=== PATIENT | female | born 1945 | race Caucasian/White ===

== ENCOUNTER → 2018-11-13 | Day surgery (SDC) | payer MEDICARE ==
[2018-11-12 11:17] LABS: BASOPHILS % 0.7 % (0.0-1.0); EOSINOPHILS # (AUTO) 0.2 (0.0-0.4); EOSINOPHILS % 3.7 % (0.0-6.0); HEMATOCRIT 41.4 % (34.2-44.1); HEMOGLOBIN 13.4 g/dL (12.0-16.0); LYMPHOCYTES # (AUTO) 1.8 (1.0-3.2); MEAN CORPUSCULAR HGB CONC 32.4 g/dL (31-35); MEAN CORPUSCULAR VOLUME 92.8 fL (81-99); MONOCYTES # (AUTO) 0.6 (0.2-0.8); MONOCYTES % 10.4 % (4.4-11.3); NEUTROPHILS # (AUTO) 2.8 (2.1-6.9); PLATELET COUNT 231 x10e3/uL (140-360); RED BLOOD COUNT 4.46 x10e6/uL (3.6-5.1); RED CELL DISTRIBUTION WIDTH 12.7 % (11.7-14.4)
--- NOTE | 2018-11-12 12:31 | Diagnostic Imaging Report ---
EXAMINATION: CHEST 2 VIEWS INDICATION: Pre-admit. COMPARISON: None FINDINGS: TUBES and LINES: None. LUNGS: Lungs are well inflated. Lungs are clear. There is no evidence of pneumonia or pulmonary edema. PLEURA: No pleural effusion or pneumothorax. HEART AND MEDIASTINUM: The cardiomediastinal silhouette is unremarkable. BONES AND SOFT TISSUES: No acute osseous lesion. Soft tissues are unremarkable. UPPER ABDOMEN: No free air under the diaphragm. IMPRESSION: No acute radiographic abnormality. Signed by: Dr. Xavier Bacon MD on 11/12/2018 12:28 PM
[~2018-11-13] MED LIST: BUPIVACAINE 0.5%/EPI 30 ML SDV INJ ONE; CLINDAMYCIN 300MG 50 ML IV ONE; DEXAMETHASONE SOD PHOS INJ 4 MG/ML VIAL ONE; FENTANYL CITRATE/PF 100MCG/2 ML INJ ONE; FLONASE; GENTAMICIN 80MG/NS 100 ML 200 ML IV ONE; LIDOCAINE 2%/ EPINEPHRINE 20ML MDV ONE; LIDOCAINE HCL 2% LOCAL INJ 5 ML SDV VIAL INJ ONE; LISINOPRIL10 MG PO; ONDANSETRON HCL INJ 2MG/ML 2ML 2 MG/ML VIAL ONE; PIPER-TAZ 3.375 GM 50 ML ONE; PROPOFOL IV EMULSION 10 MG/ML 20 ML VIAL ONE; ROCURONIUM BROMIDE 10 MG/ML 5ML VIAL ONE; SEVOFLURANE INHAL SOLN 250 ML PEN BTL ONE; SINGULAIR10 MG PO; ZYRTEC10 M3 PO
--- OUTSIDE RECORDS SUMMARY | 2018-11-13 09:17 | XMS REPORT ---
Author Author [facility] Address Unknown Phone Unavailable Care Team Providers Care Furniture Sander Name Role Phone ALAINA CHAMPION Unavailable Unavailable Problems This patient has no known problems. Allergies, Adverse Reactions, Alerts This patient has no known allergies or adverse reactions. Medications This patient has no known medications. Results Test Description Test Time Test Comments Text Results Atomic Results Result Comments CHEST 2 VIEWS 2018-11-12 12:27:00 [place] [id number] Patient Name: DELIA LANDEROS MR #: [id number] : 1945 Age/Sex: 73/F Req #: [id number] Adm Physician: Ordered by: ALAINA CHAMPION MD Report #: [id number] Location: OR Room/Bed: Procedure: [id number] DX/CHEST 2 VIEWS Exam Date: 11/12/18 Exam Time: 1130 REPORT STATUS: Signed EXAMINATION: CHEST 2 VIEWS INDICATION: Pre-admit. COMPARISON: None FINDINGS: TUBES and LINES: None. LUNGS: Lungs are well inflated. Lungs are clear. There is no evidence of pneumonia or pulmonary edema. PLEURA: No pleural effusion or pneumothorax. HEART AND MEDIASTINUM: The cardiomediastinal silhouette is unremarkable. BONES AND SOFT TISSUES: No acute osseous lesion. Soft tissues are unremarkable. UPPER ABDOMEN: No free air under the diaphragm. IMPRESSION: No acute radiographic abnormality. Signed by: Dr. Rodolfo Costa MD on 11/12/2018 12:28 PM Dictated By: RODOLFO COSTA MD [id number] Transcribed By: SOTO on 11/12/18 1228 COPY TO: ALAINA CHAMPION MD
[2018-11-13 15:00] VITALS: BP 126/60
--- NOTE | 2018-11-15 20:06 | Operative Report ---
DATE OF PROCEDURE: November 13, 2018 PREOPERATIVE DIAGNOSIS: Refractory urge incontinence. POSTOPERATIVE DIAGNOSIS: Refractory urge incontinence. OPERATIONS PERFORMED 1. Explantation of left-sided InterStim neurostimulator. 2. Explantation of left-sided InterStim lead. 3. Complete InterStim system implantation on the right hand side with incision implantation of tined quadripolar lead electrodes into the right foramen S3. 4. Fluoroscopic guidance for needle placement. 5. Subcutaneous implantation of sacral nerve neurostimulator on the right hand side. 6. Electronic analysis and complex programming. ANESTHESIA: General. COMPLICATIONS: None. CLINICAL SUMMARY: Raiza Singer is a 73-year-old woman who in 2014 had an InterStim implantation performed by urogynecologist. This seemed to work for several weeks and then stopped working. The patient is brought to the operating room today for replacement of her nonfunctional InterStim. She is aware of the risks of bleeding, infection, injury to adjacent structures, need for additional procedures, and elected to proceed. OPERATIVE PROCEDURE IN DETAIL: Informed consent was verified. Raiza Singer was properly identified, taken to the operating room where general anesthesia was uneventfully begun. She was carefully repositioned into prone position with all pressure points very carefully well padded. Her back and buttocks were prepared and draped in usual sterile fashion. An incision was made through the old scar of the InterStim neurostimulator. This stimulator was placed extremely medial on the back, so that when the patient is lying on her back, she is lying right on the top of her neurostimulator. We incised the stimulator and it seemed intact. We then unscrewed the single set screw and removed the neurostimulator. We then tested the 4 leads for plantarflexion of the great toe as well as bellowing of the perineum. Fluoroscopically, this lead appeared to be positioned higher than it should be. It seemed to have also been migrated proximally. This lead was obviously not in good position. We then made an incision over the old existing lead site, gently pulled on the lead. Despite pulling extremely gently, the lead disconnected leaving the contacts within the patient even though the lead was removed. A needle was introduced into the right foramen S3. We verified depth of needle and position of the needle fluoroscopically. We observed and identified bellowing as well as plantarflexion of the great toe. Then, the needle stylet was removed and directional guidewire was then placed and decision was made peripheral to the directional guide. The dilator introducer sheath was then placed over the directional guidewire and was placed into the foramen until the opaque marker of the dilator was seen midway through the sacrum. The dilator and obturator were unlocked. The lead was then placed and introduced the sheath through the first white line. Position was checked fluoroscopically. The lead was then further advanced until the leads were anterior to the sacrum. All electrodes were tested and appeared to respond appropriately as mentioned above. We then, under continuous fluoroscopy, retracted the sheath and thus deploying the lead tines into the parasacral tissue. Further incision was then made into the subcutaneous tissues posterior to iliac crest on the right hand side and we created a pocket. We then utilized the tunneling tool to bring the lead from its current position to the pocket site. We verified hemostasis. The lead was then cleansed of bodily fluids with thorough irrigation with sterile water. It was dried thoroughly. The lead was then placed into the [facility] pulse generator header with the leads aligned and the blue tip clearly visible in the distal most portion of the pulse generator header. The single set screw was tightened with a Hex wrench. We irrigated all wounds thoroughly. We then placed a pulse generator into the subcutaneous pocket and interrogated it with a programming head on all parameters within acceptable limits. We then approximated all incisions in 2 layers utilizing absorbable suture. We thoroughly irrigated at each layer of the closure. Mastisol, Steri-Strips and Bioclusive dressings were applied. Prior to closure, Marcaine and lidocaine with epinephrine were infiltrated circumferentially to all the incisions for postoperative pain control. The patient was uneventfully reversed from anesthesia and taken to recovery room in stable condition. There were no complications during the procedure. She tolerated it well. Utilizing a clinician programming, the patient was then programmed to lead of optimum sensation and given explicit instructions on utilizing the android programmer prior to discharge. There were no complications during the procedure. The patient tolerated the procedure well. Sponge, needle and instrument counts were quoted correct x2 at the end of the case. Estimated blood loss was minimal. Explicit postoperative instructions were given. We will follow the patient up in the office. Job#: [id number] MORRO
== END | disposition home or self-care (01) ==
LOC: OR 09:14
PROVIDERS: ATTEND Urology
DX: N39.46 Mixed incontinence (principal); I10 Essential (primary) hypertension; Z88.6 Allergy status to analgesic agent; Z01.810 Encounter for preprocedural cardiovascular examination; Z01.812 Encounter for preprocedural laboratory examination; Z01.818 Encounter for other preprocedural examination; Z68.30 Body mass index [BMI] 30.0-30.9, adult
CPT/HCPCS: 64581; 64590; 95972; C1778; L8679; 36415; 71046; 85025; 88300; 93005; J1100; J1580; J2001; J2405; J2543

== ENCOUNTER 2018-11-15 13:52 | Inpatient (IN) | payer MEDICARE ==
[~2018-11-15] VITALS: Ht 165.1 cm; Wt 90.3 kg
[~2018-11-15 13:52] MED LIST changes: -BUPIVACAINE 0.5%/EPI 30 ML SDV INJ ONE; -CLINDAMYCIN 300MG 50 ML IV ONE; -DEXAMETHASONE SOD PHOS INJ 4 MG/ML VIAL ONE; -FENTANYL CITRATE/PF 100MCG/2 ML INJ ONE; -GENTAMICIN 80MG/NS 100 ML 200 ML IV ONE; -LIDOCAINE 2%/ EPINEPHRINE 20ML MDV ONE; -LIDOCAINE HCL 2% LOCAL INJ 5 ML SDV VIAL INJ ONE; -ONDANSETRON HCL INJ 2MG/ML 2ML 2 MG/ML VIAL ONE; -PIPER-TAZ 3.375 GM 50 ML ONE; -PROPOFOL IV EMULSION 10 MG/ML 20 ML VIAL ONE; -ROCURONIUM BROMIDE 10 MG/ML 5ML VIAL ONE; -SEVOFLURANE INHAL SOLN 250 ML PEN BTL ONE
[2018-11-15 15:07] LABS: BASOPHILS % 0.6 % (0.0-1.0); EOSINOPHILS # (AUTO) 0.2 (0.0-0.4); EOSINOPHILS % 3.8 % (0.0-6.0); HEMOGLOBIN 13.8 g/dL (12.0-16.0); LYMPHOCYTES # (AUTO) 1.6 (1.0-3.2); LYMPHOCYTES % 25.7 % (18.0-39.1); MEAN CORPUSCULAR HEMOGLOBIN 31.4 pg (28-32); MEAN CORPUSCULAR HGB CONC 34.5 g/dL (31-35); MEAN CORPUSCULAR VOLUME 90.9 fL (81-99); MONOCYTES # (AUTO) 0.7 (0.2-0.8); MONOCYTES % 11.3 % (4.4-11.3); NEUTROPHILS # (AUTO) 3.7 (2.1-6.9); NEUTROPHILS % 58.3 % (38.7-80.0); PLATELET COUNT 223 x10e3/uL (140-360); RED CELL DISTRIBUTION WIDTH 12.8 % (11.7-14.4)
[2018-11-15 15:27] LABS: ALBUMIN 4.2 g/dL (3.5-5.0); ALBUMIN/GLOBULIN RATIO 1.7 (0.8-2.0); ANION GAP 16.8 mmol/L (8-16); CALCIUM 9.7 mg/dL (8.4-10.2); CREATININE, SERUM 1.62 mg/dL (0.57-1.11); POTASSIUM 4.8 mmol/L (3.5-5.1)
[2018-11-15 15:57] LABS: CLARITY,URINE CLEAR (CLEAR); COLOR,URINE YELLOW (YELLOW)
[2018-11-15 15:58] LABS: BILIRUBIN,URINE NEGATIVE (NEGATIVE); KETONES,URINE NEGATIVE (NEGATIVE); LEUKOCYTE ESTERASE ,URINE NEGATIVE (NEGATIVE); NITRITE,URINE NEGATIVE (NEGATIVE); PROTEIN,URINE DIPSTICK NEGATIVE (NEGATIVE); URINE UROBILINOGEN 1 mg/dL (0.2 - 1)
[2018-11-15 16:06] LABS: BACTERIA,URINE FEW /HPF; EPITHELIAL CELLS,URINE FEW /LPF; RBC,URINE 0-5 /HPF (0-5); WBC,URINE (MAN) 0-5 /HPF (0-5)
[2018-11-15] MEDS ORDERED: ONDANSETRON HCL INJ 2MG/ML 2ML 2 MG/ML VIAL IV ONE (16:30)
[2018-11-15] MEDS ORDERED: ONDANSETRON HCL INJ 2MG/ML 2ML 2 MG/ML VIAL IV PRN (17:00)
[2018-11-15] MEDS ORDERED: HYDROCODONE/APAP 7.5MG-325MG 1 EA TAB PO PRN (17:00)
[2018-11-15] MEDS: SODIUM CHLORIDE 0.9% 1000ML 1,000 ML IV SCH (17:40)
[2018-11-15] MEDS: VANCOMYCIN 1GM/NS 250 ML 250 ML IV SCH (18:25)
[2018-11-15] MEDS: PIPERACILLIN/TAZO 2.25 GM 50 ML IV SCH (18:25)
--- NOTE | 2018-11-15 18:57 | NUR ---
Patient arrived on the unit from ED via stretcher bed to Rm 289. Patient alert and oriented x3. Pt diagnosis is cellulitis on right buttock surgical wound. Patient with a total of 3 incision sites (right buttock, middle and left buttocks). On IVF. Call lee within reach.
--- NOTE | 2018-11-15 19:00 | NUR ---
WOUND CARE CONSULT ORDERED
[2018-11-15] MEDS ORDERED: MORPHINE SULFATE 2 MG/ML SYR 1ML IV PRN (20:30)
[2018-11-15 20:56] VITALS: BP 158/67
[2018-11-15] MEDS ORDERED: MORPHINE SULFATE INJ 4 MG/ML INJ 1ML ONE (20:59)
[2018-11-15 21:00] VITALS: BP 158/67
[2018-11-15 22:00] VITALS: BP 158/67
[2018-11-15] MEDS ORDERED: PIPERACILLIN/TAZO 2.25 GM 50 ML IV SCH (22:00)
[2018-11-16] VITALS (8 sets, daily range): BP systolic 111–129; BP diastolic 54–74
[2018-11-16] MEDS: SODIUM CHLORIDE 0.9% 1000ML 1,000 ML IV SCH ×2 (01:10→17:28)
[2018-11-16] MEDS: PIPERACILLIN/TAZO 2.25 GM 50 ML IV SCH ×2 (02:23→09:47)
[2018-11-16] MEDS: MORPHINE SULFATE INJ 4 MG/ML INJ 1ML IV PRN ×3 (04:03→17:28)
[2018-11-16] MEDS ORDERED: BISACODYL 5 MG TAB EC PO SCH ×2 (05:30→12:30)
--- NOTE | 2018-11-16 06:25 | NUR ---
Spoke with Answering service ([facility]) to inform about new consult for Dr. Woods regarding cellulitis of buttocks ordered by Dr. Campuzano. [facility] stated she will relay message to Dr. Woods.
--- NOTE | 2018-11-16 07:20 | NUR ---
PATIENT IS AWAKE AND ALERT- PATIENT IS IN STABLE CONDITION WITH NO S/S OF RESPIRATORY DISTRESS. PATIENT STATES GENERALIZED PAIN (HIP AND ABDOMEN) 6/10- PAIN MEDICATION IS NOT AVAILABLE AT THIS TIME. IV FLUIDS INFUSING. CALL LIGHT IS WITHIN REACH, PATIENT INSTRUCTED TO CALL FOR ASSISTANCE NEEDED.
[2018-11-16] MEDS: LORATADINE 10 MG TAB PO SCH (08:52)
[2018-11-16] MEDS: LISINOPRIL 10 MG TAB PO SCH (08:52)
[2018-11-16] MEDS: MONTELUKAST SODIUM 10 MG TAB PO SCH (08:53)
[2018-11-16] MEDS: FLUTICASONE PROPIONATE NASAL SPRAY NS SCH (08:53)
--- NOTE | 2018-11-16 13:44 | NUR ---
PATIENT HAD A BOWEL MOVEMENT- WILL SWITCH DULCOLAX MEDICATION TO PRN.
[2018-11-16] MEDS ORDERED: BISACODYL 5 MG TAB EC PO PRN (14:00)
--- NOTE | 2018-11-16 15:55 | Consultation ---
DATE OF CONSULTATION: REASON FOR CONSULTATION: Cellulitis of the buttock area. This patient who is a very pleasant female who had a bladder stimulator site changed from the left to the right buttock on Friday by Dr. Daniel Atkins. She is coming with pain, redness and swelling on the area and some minimal drainage noted. The patient had a bladder stimulator inserted. The site became a little bit hot, warm and tender as mentioned above, so she is being admitted. PAST MEDICAL HISTORY: Obesity, hypertension and bladder dysfunction. ALLERGIES: NKA. SOCIAL HISTORY: Does not smoke. No drug abuse or alcohol abuse. FAMILY HISTORY: Noncontributory. REVIEW OF SYSTEMS HEENT: Negative. PULMONARY: Negative. CARDIAC: Negative. : Negative. SKIN: No other rashes except on the buttock area. All other systems are within normal limits. LABS: White count is 6.38, hemoglobin 13.8. Her sodium is 139, potassium 4.8, creatinine 1.62. PHYSICAL EXAMINATION GENERAL: She is currently alert and oriented. Does not seem to be in acute distress. VITALS: Stable. Currently afebrile. HEENT: She is not icteric. NECK: Supple. CHEST: Clear. Coarse. CORE: S1 and S2. ABDOMEN: Soft. Bowel sounds present. No tenderness. No hepatosplenomegaly. EXTREMITIES: No edema. SKIN: There is no rash to the buttock area. The patient has some swelling noted on the pacemaker site. IMPRESSION: Infection of the pacemaker site. RECOMMENDATIONS: Removal of the device if possible. Will discuss with Dr. Daniel Atkins. Agree with vancomycin. Will discontinue Zosyn since the patient has chronic kidney disease and will put her on cefepime. Will recheck CBC. Recheck Chem panel. Further recommendations to follow. Job#: [id number] [place]
[2018-11-16] MEDS: VANCOMYCIN 1GM/NS 250 ML 250 ML IV SCH (17:28)
--- NOTE | 2018-11-16 17:57 | NUR ---
RECEIVED PHONE CALL FROM DR. CHAMPION. INQUIRED ON DRESSING CHANGE- DR. CHAMPION WANTES TO SEE THE SITE FIRST BEFORE REMOVING DRESSING. PATIENT INFORMED DR. CHAMPION WILL ROUND THIS EVENING.
--- NOTE | 2018-11-16 18:49 | NUR ---
WOUND CARE CONSULTATION- INITIAL EVALUATION Patient admitted for Cellulitis of right gluteal surgical incision site from recent interstim placement. - Dr Woods on case for IV ABX LABS: WBC6.38 HGB13.8 HCT40 NEUT%58.3 ALB4.2 GLU98 Arthur Score =22 Alternating Pressure Air Mattress in place Conservative PUP active. Wound Care Consulted for Buttocks wounds. Patient Visit: Patient OOB to chair. In good spirits awaiting for Dr Visit. - Pt states ID in to see ulcer earlier. - Left Gluteal and Right Gluteal Dressings removed.- Nurse arrived to room shortly and advised that Dr Atkins did not want dressing removed arrived. Procedure stopped. 3rd dressing noted to sacral area. Deferred removal of 3rd dressing. Denies tenderness at sacral area. But does feel tenderness at bilateral gluteal areas. Temporary Silver Alginate Dressing Applied. Will await for Dr. Atkins to evaluate and treat. IMPRESSION: - Left Gluteal - SX incision 7cm- - SteriStrips present covering entire incision line with small blood crusted areas. No Redness, Tender to touch, No induration noted. - Right Gluteal - SX incision 8.5 cm - Redness 2 cm , Tender To Touch, Warm to Touch, Minimally crusted Steri Strips noted. Steri strips covering entire incision line. RECOMMENDATION: - Await for Dr. Atkins to evaluate and select choice of treatment. - Could Benefit from Silver Alginate Dressings to keep area dry and reduce bacterial burden to site. Thank you for consulting with Wound Care. Addendum: 11/16/18 at 1906 by Parker Ziegler RN Amended: Links added.
--- NOTE | 2018-11-16 19:44 | NUR ---
PATIENT AMBULATING IN HER ROOM AND IS IN STABLE CONDITION WITH NO S/S OF RESPIRATORY DISTRESS. NO PAIN VOICED. NEYDA AREA SURROUNDING RIGHT BUTTOCK SURGICAL SITE HAS BEEN MARKED/NOTED. CALL LIGHT IS WITHIN REACH, INSTRUCTED TO CALL FOR ASSISTANCE NEEDED. REPORT GIVEN TO ONCOMING NURSE.
[2018-11-17] VITALS (8 sets, daily range): BP systolic 127–189; BP diastolic 57–85
[2018-11-17] MEDS: MONTELUKAST SODIUM 10 MG TAB PO SCH (08:59)
[2018-11-17] MEDS: LORATADINE 10 MG TAB PO SCH (09:00)
[2018-11-17] MEDS: FLUTICASONE PROPIONATE NASAL SPRAY NS SCH (09:00)
[2018-11-17] MEDS: LISINOPRIL 10 MG TAB PO SCH (09:00)
[2018-11-17] MEDS: SODIUM CHLORIDE 0.9% 1000ML 1,000 ML IV SCH (09:37)
--- NOTE | 2018-11-17 11:08 | NUR ---
JOSE ALBERTO SPOKE WITH AL WITH DR MCKENNA PICC LINE TODAY HIS OFFICE IS STARTING PROCESS FOR IV ABX AND CAN BE DISCHARGED WHEN AUTH FROM HIS OFFICE REC'D
--- NOTE | 2018-11-17 11:35 | NUR ---
SPOKE WITH DR. MAJOR REGARDING PATIENT'S REQUEST FOR TYLENOL AND MEDICATION FOR A COUGH. ORDERS RECEIVED.
[2018-11-17] MEDS ORDERED: BENZONATATE 100 MG CAP PO PRN (11:45)
--- NOTE | 2018-11-17 12:13 | NUR ---
SPOKE WITH Dillon INFANTE REGARDING PATIENT QUESTIONING PICC LINE PLACEMENT AND ORAL ANTIBIOTICS. Dillon. INFORMED OF RADIOLOGY PROTOCOL REGARDING GFR- PATIENT HAS A GFR OF 31; Dillon. STATED TO HOLD ON THE PICC LINE CONSENT AND HE WILL GET BACK TO NURSING ABOUT IT.
[2018-11-17] MEDS: CEFEPIME 1GM/NS 0.9% 50 ML 50 ML IV SCH (13:09)
[2018-11-17] MEDS: ACETAMINOPHEN 325 MG TAB PO PRN ×2 (13:10→19:55)
--- NOTE | 2018-11-17 16:02 | NUR ---
DR. MCKENNA ROUNDED AND SPOKE WITH THE PATIENT REGARDING PICC LINE AND ANTIBIOTIC OPTIONS. DR. MCKENNA INFORMED OF PATIENT'S GFR LEVEL. DR. MCKENNA AWARE OF NEED FOR RENAL CONSULT TO CLEAR PATIENT FOR PICC LINE PLACEMENT. DR. MCKENNA STATED HE WILL REACH OUT TO DR. MAJOR FIRST TO DISCUSS CARE OF PATIENT. NO NEW ORDERS RECEIVED.
--- NOTE | 2018-11-17 16:18 | Progress Note ---
DATE: November 17, 2018 Ms. Singer is doing well. No new complaints. The patient comes in with redness and swelling of her thigh where she had a pacemaker for the bladder. I spoke with Dr. Atkins yesterday. He would like to see if we can save the hardware if possible. Discussed with the patient about going to IV antibiotics for 6 weeks plus wound care. The patient has renal insufficiency. We discussed that she may need a central line. The patient wants to think about it. That versus risk of removal of the pump over the pacemaker and treating her. She is currently thinking about it. ADDENDUM: The patient also has chronic kidney disease. Will consult renal for evaluation. Recheck CBC. Recheck Chem panel. Will follow with you. Job#: [id number] EDUARDO
--- NOTE | 2018-11-17 18:16 | NUR ---
CALLED AND SPOKE WITH Skip INFANTE REGARDING VANCO TROUGH RESULT 8.7- ORDER TO CHANGE VANCOMYCIN 1GRAM FROM Q24H TO BID.
[2018-11-17] MEDS: VANCOMYCIN 1GM/NS 250 ML 250 ML IV SCH (20:55)
[2018-11-18] VITALS: BP 142/66
[2018-11-18] MEDS: SODIUM CHLORIDE 0.9% 1000ML 1,000 ML IV SCH (01:05)
[2018-11-18 04:15] VITALS: BP 154/70
[2018-11-18 06:27] LABS: BASOPHILS % 0.5 % (0.0-1.0); EOSINOPHILS # (AUTO) 0.3 (0.0-0.4); EOSINOPHILS % 6.1 % (0.0-6.0); HEMATOCRIT 37.9 % (34.2-44.1); HEMOGLOBIN 12.4 g/dL (12.0-16.0); LYMPHOCYTES # (AUTO) 1.2 (1.0-3.2); LYMPHOCYTES % 28.9 % (18.0-39.1); MEAN CORPUSCULAR HEMOGLOBIN 29.9 pg (28-32); MEAN CORPUSCULAR HGB CONC 32.7 g/dL (31-35); MEAN CORPUSCULAR VOLUME 91.3 fL (81-99); MONOCYTES # (AUTO) 0.5 (0.2-0.8); MONOCYTES % 12.6 % (4.4-11.3); NEUTROPHILS # (AUTO) 2.1 (2.1-6.9); NEUTROPHILS % 51.7 % (38.7-80.0); PLATELET COUNT 202 x10e3/uL (140-360); RED BLOOD COUNT 4.15 x10e6/uL (3.6-5.1); RED CELL DISTRIBUTION WIDTH 12.7 % (11.7-14.4)
[2018-11-18] MEDS: ACETAMINOPHEN 325 MG TAB PO PRN ×2 (06:46→15:52)
[2018-11-18 06:51] LABS: ANION GAP 12.9 mmol/L (8-16); CALCIUM 8.6 mg/dL (8.4-10.2); POTASSIUM 3.9 mmol/L (3.5-5.1)
--- NOTE | 2018-11-18 07:30 | NUR ---
pt up in bed awake no distress ntoed denies [pain.
[2018-11-18 07:35] VITALS: BP 159/70
[2018-11-18 08:29] VITALS: BP 159/70
[2018-11-18] MEDS: MONTELUKAST SODIUM 10 MG TAB PO SCH (08:45)
[2018-11-18] MEDS: FLUTICASONE PROPIONATE NASAL SPRAY NS SCH (08:45)
[2018-11-18] MEDS: LISINOPRIL 10 MG TAB PO SCH (08:45)
[2018-11-18] MEDS: LORATADINE 10 MG TAB PO SCH (08:45)
[2018-11-18] MEDS: VANCOMYCIN 1GM/NS 250 ML 250 ML IV SCH ×2 (08:45→21:30)
[2018-11-18] MEDS ORDERED: CEFEPIME HCL 1 GM VIAL IV SCH (09:00)
--- NOTE | 2018-11-18 09:25 | NUR ---
IV SITE PAINFUL DCD ,RESTARTED IV TO LT HAND 20 GAUGE TOLERATED WELL.
[2018-11-18] MEDS: CEFEPIME 1GM/NS 0.9% 50 ML 50 ML IV SCH (12:00)
[2018-11-18 12:27] VITALS: BP 154/65
--- NOTE | 2018-11-18 15:53 | NUR ---
PT UP IN BED C/O RT BUTTOCKS PAIN LEVEL 5 MEDICATED
--- NOTE | 2018-11-18 16:19 | NUR ---
RECEIVED ORDER FOR HOME IV VANC 1.5GM QD AND ROCEPHIN 2G IV X 6WEEKS W CBC, BMP AND VANC TR Q FRIDAY. MET W THE PT AND ALEXISRAMBER AT THE BEDSIDE. PROVIDED CHOICE FOR INFUSION COMPANIES; [facility], [facility], [facility], [facility]. DISCUSSED HH ALSO. STATES SHE WOULD LIKE TO USE A COMPANY IN NETWORK W HER INSURANCE. CALLED [facility] PRIOR TO MEETING W THE PT; AMBROSIO MALONEY STATED THE PT WANTED TO USE [facility]. SPOKE W NAOMI. STATES THEY ARE CURRENTLY NOT IN NETWORK W [email or web address]. PT CHOSE [facility]. CHOICE LETTER WAS SIGNED AND COPY TO CHART AND PT. FAXED INFO TO [facility] @ OFF: [phone] / FAX: [phone].
--- NOTE | 2018-11-18 17:49 | NUR ---
PT UP IN BED,PICC TEAM HERE TO INSERT PICC LINE,TIME OUT PREFORMED
--- NOTE | 2018-11-18 18:56 | Diagnostic Imaging Report ---
EXAMINATION: CHEST XRAY LINE PLACEMENT INDICATION: Chest pain ^PICC LINE PLACEMENT ^Y COMPARISON: November 12, 2018 FINDINGS: TUBES and LINES: Right peripherally inserted central venous catheter with distal tip at the right atrial/superior vena cava junction. LUNGS: Lungs are well inflated. Lungs are clear. There is no evidence of pneumonia or pulmonary edema. PLEURA: No pleural effusion or pneumothorax. HEART AND MEDIASTINUM: The cardiomediastinal silhouette is unremarkable. BONES AND SOFT TISSUES: No acute osseous lesion. Soft tissues are unremarkable. UPPER ABDOMEN: No free air under the diaphragm. IMPRESSION: Right peripherally inserted central venous catheter with distal tip at the right atrial/superior vena cava junction. No pneumothorax is seen. Signed by: Dr. Jake Ahmadi M.D. on 11/18/2018 6:52 PM
--- NOTE | 2018-11-18 19:03 | NUR ---
Patient visited in room during nursing rounds. Patient alert and oriented x3. Patient with a total of 3 incision sites (right buttock, middle and left buttocks) all covered with steri strips. Redness on right buttocks have noticeably diminished in size around the incision site. Call lee within reach.
[2018-11-18 20:00] VITALS: BP 187/77
--- NOTE | 2018-11-18 20:30 | NUR ---
Patient ambulated and went to ED to visit significant other / boyfriend.
[2018-11-19] VITALS (7 sets, daily range): BP systolic 130–180; BP diastolic 60–87
[2018-11-19] MEDS: MORPHINE SULFATE INJ 4 MG/ML INJ 1ML IV PRN (00:44)
--- NOTE | 2018-11-19 07:25 | NUR ---
RECD PT IN BED SLEEPING ,NO S/S DISCOMFORT.
--- NOTE | 2018-11-19 08:37 | NUR ---
PT AT BEDSIDE. PICC LINE TO RUE, NO REDNESS OR SWELLING NOTED TO INSERTION SITE. VANC TROUGH DRAWN AT THIS TIME. SELF AMBULATORY. SURGICAL INCISIONS NOTED ON R/L BUTTOCKS, NO S/S OR REDNESS OR DRAINAGE. TENDERNESS TO L SIDE SURROUNDING INCISIONS. A&0 x3, NO DISTRESS NOTED.
[2018-11-19] MEDS: LORATADINE 10 MG TAB PO SCH (08:42)
[2018-11-19] MEDS: LISINOPRIL 10 MG TAB PO SCH (08:42)
[2018-11-19] MEDS: MONTELUKAST SODIUM 10 MG TAB PO SCH (08:43)
[2018-11-19] MEDS: VANCOMYCIN 1GM/NS 250 ML 250 ML IV SCH (09:00)
[2018-11-19] MEDS: FLUTICASONE PROPIONATE NASAL SPRAY NS SCH (09:32)
--- NOTE | 2018-11-19 09:36 | NUR ---
LAB CALLED, AMIE TROUGH 22.5, WILL NOTIFY PHYSICIAN. SILVIANO BELTRAN
[2018-11-19] MEDS ORDERED: VANCOMYCIN 750MG/NS 150ML IVPB 150 ML IV SCH (11:15)
[2018-11-19] MEDS: CEFEPIME 1GM/NS 0.9% 50 ML 50 ML IV SCH (12:05)
--- NOTE | 2018-11-19 14:41 | NUR ---
FAXED UPDATED ORDERS. VANC CHANGED TO 1.25GM IV DAILY [id number]. FAXED ORDER TO [facility]. YUAN ESPINOZA ORDER WAS RECEIVED.
--- NOTE | 2018-11-19 14:46 | NUR ---
HOME HEALTH DISCHARGE NOTE PATIENT ADDRESS WHERE SERVICE WILL BE RECEIVED: [address] [place] [id number] PATIENT CONTACT NUMBER: [phone] NAME OF HOME HEALTH COMPANY: [facility] @ [phone] AND [facility] @ [phone] TELEPHONE/FAX NUMBER OF COMPANY: [facility] @ [phone] AND [facility] @ [phone] ADDRESS OF COMPANY: [facility] / [facility] [place] [address] SERVICES TO RECEIVE: HOME IV ANTIBIOTICS; VANCOMYCIN AND ROCEPHIN ANTICIPATED DATE SERVICES WILL BEGIN: 11/20/2018 Please call the company above if you have not received a call to schedule a home visit within 24 hours of discharge.
--- NOTE | 2018-11-19 14:54 | NUR ---
LE: 11/16/2018 CASE MANAGEMENT INITIAL ASSESSMENT [place] Polisher to bedside to discuss plan of care with patient/family. CM/SW role and care transitions discussed. Anticipated discharge plan discussed along with duration of care. CM/SW discussed patients right to make decisions in care. CM/SW work hours given. Patient lives: W SIGNIFICANT OTHER / BF Admit/Transfer: ER Hospital/ER visits since last admit: X1, DIRECT ADMIT FOR A PROCEDURE FRIDAY; 11/13/18 ( BLADDER STIMULATOR SITE CHANGE) POA/Emergency contact: BUFFY CASTELLANOS [phone] / SO Current/Previous Home Health: NONE PCP/Follow-up Care: [facility]. PREVIOUS PCP RESIGNED AND PT IS SCHEDULED TO GET NEW PCP W NEXT APPOINTMENT. Current/Previous DME: HEARING AIDS, CANE Medications (referring to index hospitalization or the first time you were in the hospital) a. Were changes made in your medications when you were in the hospital on [date of index hospitalization]? Yes Explain: ADDED TRAMADOL; STOPPED AFTER 4 DOSES. LAST DOSE OF BACTRIM WAS 11/15/18 b. Did you understand the changes? Yes c. Were you able to obtain your new medications right away? Yes d. Were you able to take your medications like the doctor wanted you to? Yes e. Did the hospital give you an accurate, easy to understand list of medications when you left? Yes Scale of 1-10 how comfortable does patient feel with disease management in outpatient setting: Other Services: NONE Employment Status: RETIRED WAREHOUSE CLERK Areas of Concerns: STATES EVERYONE KEEPS CONFUSING HER W ANOTHER PT. Referral Needs: NONE Education Needs: NONE IMM/RUBIO given and signed (if applicable): GIVEN IN ADMITTING Goal for discharge: RETURN HOME CM/SW left business card at the bedside with contact information. Name and number was also written on the patients whiteboard. Patient verbalized understanding of discussion. CM will follow-up with ongoing discharge and transition of care needs.
--- NOTE | 2018-11-19 16:30 | NUR ---
SPOKE WITH DR PEDRITO SALMERON TO DISCHARGE PT HOME.SPOKE WITH [facility] INFUSING ANTIBIOTICS SET UP
--- NOTE | 2018-11-19 17:38 | NUR ---
PT UP IN CHAIR NO DISTRESS NOTED
--- NOTE | 2018-11-22 14:52 | Discharge Summary ---
DISCHARGE DIAGNOSES 1. Cellulitis of the buttock. 2. Hypertension. FOLLOWUP: Follow up with Dr. Atkins in [address] Woods. HISTORY OF PRESENT ILLNESS AND HOSPITAL COURSE: See hospital chart for full details. Patient is a lady who had an InterStim placed for bladder control and unfortunately, it became infected and the patient decided that she wanted to try to save the device. She was placed on IV antibiotics with significant improvement in her cellulitis of the buttock. She is going to maintain on IV antibiotics up to [address] Woods and once everything was arranged and ensured, she was discharged home no IV antibiotics and to followup both Dr. Woods and Dr. Atkins . Please see hospital chart for full details. TASHA MAJOR MD Job#: [id number] HYACINTH
== END 2018-11-19 17:59 | disposition home or self-care (01) | DRG 863 ==
LOC: ER 13:52 → ERHOLD 16:57 → MED/SURG3 18:37 → OBSVTOIN 11-17 15:16
PROVIDERS: ADMIT Internal Medicine; ATTEND Internal Medicine
PROC: 02HV33Z Insertion of Infusion Device into Superior Vena Cava, Percutaneous Approach (ICD-10-PCS; principal; 2018-11-17)
PROC: B548ZZA Ultrasonography of Superior Vena Cava, Guidance (ICD-10-PCS; 2018-11-17)
DX: T81.41XA Infection following a procedure, superficial incisional surgical site, initial encounter (principal); L03.317 Cellulitis of buttock; I12.9 Hypertensive chronic kidney disease with stage 1 through stage 4 chronic kidney disease, or unspecified chronic kidney disease; E66.9 Obesity, unspecified; Z68.33 Body mass index [BMI] 33.0-33.9, adult; N18.3 Chronic kidney disease, stage 3 (moderate); Z88.5 Allergy status to narcotic agent; Z88.8 Allergy status to other drugs, medicaments and biological substances; Z82.49 Family history of ischemic heart disease and other diseases of the circulatory system
CPT/HCPCS: 36415; 36569; 71045; 80048; 80053; 80202; 81001; 83605; 85025; 87040; 87086; 99284; G0378; J0692; J2270; J2405; J2543; J3370; J7030